=== PATIENT | female | born 1975 | race Asian ===

== ENCOUNTER 2022-11-05 22:19 | Emergency (ER) | payer OTHER ==
[~2022-11-05] VITALS: Ht 157.5 cm; Wt 49.9 kg
--- NOTE | 2022-11-05 22:28 | NUR ---
DARRYL [phone]
--- NOTE | 2022-11-05 23:35 | NUR ---
BLOOD COLLECTED AND SENT TO LAB
--- NOTE | 2022-11-05 23:35 | NUR ---
IV LINE ESTABLISHED, [id number]
--- NOTE | 2022-11-05 23:35 | NUR ---
WEIVER SIGNED BY PT
[2022-11-05] MEDS: MORPHINE SULFATE INJ 2 MG/ML DISP.SYRIN IV ONE (23:54)
[2022-11-05] MEDS: IV NS 0.9% 1,000 ML BAG IV ONE (23:54)
[2022-11-05] MEDS ORDERED: MORPHINE SULFATE INJ 2 MG/ML DISP.SYRIN ONE (23:54)
[2022-11-05 23:55] LABS: BASOPHILS % (AUTO) 0.2 % (0.0-2.0); EOSINOPHILS % (AUTO) 0.4 % (0.0-6.0); HEMATOCRIT 38 % (33-45); HEMOGLOBIN 12.5 g/dL (11.5-14.8); LYMPHOCYTES # (AUTO) 0.9 K/uL (0.8-4.8); LYMPHOCYTES % (AUTO) 5.4 % (20.0-44.0); MEAN CORPUSCULAR HGB CONC 33 g/dl (31.0-36.0); MEAN CORPUSCULAR VOLUME 96 fL (82-100); MONOCYTES # (AUTO) 0.8 K/uL (0.1-1.30); MONOCYTES % (AUTO) 4.8 % (2.0-12.0); NEUTROPHILS # (AUTO) 15.1 K/uL (1.8-8.9); NEUTROPHILS % (AUTO) 89.2 % (43.0-81.0); PLATELET COUNT (AUTO) 311 K/uL (150-450); RED BLOOD CELL COUNT(AUTO) 3.94 MIL/uL (4.0-5.2); WHITE BLOOD COUNT (AUTO) 16.9 K/uL (4.3-11.0)
[2022-11-06 00:05] LABS: BILIRUBIN,URINE NEGATIVE (NEGATIVE); COLOR,URINE YELLOW (YELLOW); LEUKOCYTE ESTERASE ,URINE NEGATIVE (NEGATIVE); NITRITE, URINE NEGATIVE (NEGATIVE); PROTEIN,URINE 1+ mg/dl (NEGATIVE); UGLUCOSE NEGATIVE (NEGATIVE); UROBILINOGEN,URINE 0.2 EU/dL (0.2)
[2022-11-06 00:09] LABS: BACTERIA,URINE Rare /HPF (None Seen); WBC,URINE 0-2 /HPF (0-3)
[2022-11-06 00:10] LABS: SQUAMOUS EPITHELIAL CELL,UR Many /HPF (None Seen)
[2022-11-06 00:24] LABS: ALBUMIN 4.1 g/dL (3.4-5.0); BILIRUBIN,DIRECT 0.1 mg/dL (0.0-0.2); BILIRUBIN,TOTAL 0.4 mg/dL (0.2-1.0); CALCIUM, SERUM 8.8 mg/dL (8.5-10.1); CREATININE 0.6 mg/dL (0.6-1.3); TOTAL PROTEIN, SERUM 6.9 g/dL (6.4-8.2)
[2022-11-06 00:49] LABS: POTASSIUM 2.8 mmol/L (3.5-5.1)
[2022-11-06] MEDS: POTASSIUM CHLORIDE 20 MEQ POWDER PACKET PO ONE (01:00)
--- NOTE | 2022-11-06 02:50 | NUR ---
IV removed. Catheter intact and site benign. Pressure and 4x4 applied to site. No bleeding noted.
--- NOTE | 2022-11-06 02:50 | NUR ---
Patient discharged to home in stable condition. Written and verbal after care instructions given. Patient verbalizes understanding of instruction.
[2022-11-06 02:51] VITALS: BP 131/70
== END 2022-11-06 02:51 | disposition home or self-care (01) ==
LOC: ER 22:22
DX: D25.9 Leiomyoma of uterus, unspecified (principal)
CPT/HCPCS: 99285; 74176; 96374; 96361; 85025; 80048; 87086; 83690; 80076; 84703; 81001; 36415; 84702; J7030; A4223; J2270